=== PATIENT | female | born 1990 | race Hispanic/Latino ===

== ENCOUNTER 2017-10-27 17:45 | Emergency (ER) | payer OTHER ==
[~2017-10-27] VITALS: Ht 154.9 cm; Wt 58.8 kg
[2017-10-27 18:10] LABS: EOSINOPHIL (%) 0.5 % (0-5); HEMATOCRIT 41.1 % (36.0-46.0); IMMATURE GRANULOCYTE (%) 0.3 % (0.0-0.7); INSTRUMENT ABS NEUTROPHIL CT 4.8 K/uL; LYMPHOCYTE COUNT 1.9 K/uL (1.0-2.8); MCH 29.5 PG (29.0-34.0); MCHC 34.3 G/DL (30.0-36.0); MEAN PLAT.VOLUME 10.6 uM^3 (9.5-12.4); MONOCYTE COUNT 0.5 K/uL (0-0.8); NEUTROPHIL (%) 65.4 % (45-76); NEUTROPHIL COUNT 4.8 K/uL (1.8-6.4); PLATELET COUNT 154 K/uL (156-360); RBC DIS.WIDTH-CV 12.4 % (11.8-14.6); RBC DIS.WIDTH-SD 39.2 % (39-53); RED BLOOD COUNT 4.78 M/uL (3.80-5.20); WHITE BLOOD COUNT 7.3 K/uL (4.1-10.2)
[2017-10-27] MEDS ORDERED: IRON325 M1 PO (18:10)
[2017-10-27] MEDS ORDERED: ONE A DAY GUMMIES (18:11)
[2017-10-27 18:22] LABS: CHLORIDE 106 mEq/L (99-109); POTASSIUM 3.2 mEq/L (3.7-5.4); SODIUM 141 mEq/L (136-147)
[2017-10-27 18:24] LABS: GLUCOSE 107 mg/dL (70-99)
[2017-10-27 18:25] LABS: ANION GAP 12 MEQ/L (2-14)
[2017-10-27 18:26] LABS: TOTAL BILIRUBIN 0.4 mg/dL (0.0-1.0)
[2017-10-27 18:28] LABS: ALKALINE PHOSPHATASE 64 IU/L (3-129); GFR ESTIMATE (CALCULATED) > 59 mL/min/
[2017-10-27 18:29] LABS: UREA NITROGEN (BUN) 9 mg/dL (9-23)
[2017-10-27 18:45] LABS: ADD MIUA? NO; BILIRUBIN NEGATIVE; BLOOD NEGATIVE; COLOR YELLOW ((YELLOW)); GLUCOSE (STRIP) NEGATIVE; INTERNAL CONTROL VALID? YES; KETONES 5; LEUKOCYTES NEGATIVE; NITRITE NEGATIVE; PROTEIN (STRIP) NEGATIVE; SPECIFIC GRAVITY 1.019 (1.000-1.030); UROBILINOGEN 0.2 MG/DL (0.2-1.0)
[2017-10-27 19:08] VITALS: BP 124/60
== END 2017-10-27 19:10 | disposition home or self-care (01) ==
LOC: EME 17:45
PROVIDERS: Physician Assistant Medical
DX: G43.109 Migraine with aura, not intractable, without status migrainosus (principal); H65.93 Unspecified nonsuppurative otitis media, bilateral; F41.9 Anxiety disorder, unspecified; D50.9 Iron deficiency anemia, unspecified; R01.1 Cardiac murmur, unspecified
CPT/HCPCS: 80053; 81003; 84703; 85025; 99281; 99283